=== PATIENT | female | born 1945 | race Caucasian/White ===

== ENCOUNTER 2020-05-04 19:15 | Emergency (ER) | payer MEDICARE, OTHER ==
[2020-05-04] MEDS ORDERED: LORazepam 2 MG/ML SDV IVPUSH STA (19:50)
[2020-05-04] MEDS ORDERED: Ondansetron 4 MG/2 ML SDV IVPUSH ONE ×2 (19:50→20:06)
[2020-05-04] MEDS ORDERED: Sodium Chloride 0.9% 1,000 ML IV ONE ×2 (19:50→20:06)
[2020-05-04] MEDS ORDERED: Sodium Chloride 0.9% 1,000 ML ONE (19:58)
[2020-05-04] MEDS ORDERED: LORazepam 2 MG/ML SDV ONE (19:58)
[2020-05-04] MEDS ORDERED: Ondansetron 4 MG/2 ML SDV ONE (19:58)
[2020-05-04] MEDS ORDERED: LORazepam 2 MG/ML SDV IVPUSH ONE (20:06)
--- NOTE | 2020-05-04 21:50 | EDM.PDOC ---
ED HPI GENERAL MEDICAL PROBLEM - General Chief Complaint: Gastrointestinal Problem Stated Complaint: [facility] Time Seen by Provider: 05/04/20 19:16 Source of Information: Reports: Patient History Limitations: Reports: No Limitations - History of Present Illness INITIAL COMMENTS - FREE TEXT/NARRATIVE: Ms. Medellin is a very pleasant 74-year-old woman who now presents the ED by EMS for not feeling well. She states that she was diagnosed with spinal stenosis by MRI several months ago - she does not recall exactly when it was - it may have been more than a year ago. She was evaluated by a Spinal Surgeon at [facility], who recommended that she undergo decompression surgery. The patient states that she elected to not have surgery, however, because she has heard of a couple of stories, one where a patient who had spinal surgery had a screw back out on its own, and another story where a patient who had spinal surgery had a screw that was too long. She was concerned that if she underwent surgery, she may suffer from chronic pain. She states that she had an appointment with her PCP this morning, however, who encouraged her to reconsider surgery, in order to prevent eventual bowel and bladder incontinence. As it is right now, the patient states that she has bilateral lower extremity weakness, although she denies a history of falls. She states that around 19:00 tonight, she developed a right temporal headache, for which she took Tylenol, which did not help. She states that she started to feel hot, shaky, nauseated, and dizzy. She drank some cold water, which also did not help, therefore she called EMS. She denies prior similar symptoms. Here in the ED, the patient's initial BP is found to be elevated at 157/130, otherwise, she is hemodynamically stable, afebrile, saturating 100% on room air. She appears to be quite anxious. The patient states that she suffers from frequent constipation, otherwise, she denies having a recent fever, chills, sore throat, ear pain, nasal or sinus congestion, cough, dyspnea, chest pain, palpitations, nausea, vomiting, diarrhea, abdominal pain, urinary symptoms, recent weight gain or weight loss, recent bloody bowel movements or black bowel movements, recent joint aches, headaches, or rashes. The patient's PCP is Dr. Triny Tidwell. She does not recall the name of her Spinal Surgeon at [facility]. Her Silk Spooler is Dr. Jason Anthony. She already received an influenza vaccine this season. - Related Data Allergies Allergy/AdvReac Type Severity Reaction Status Date / Time Beta-Blockers Allergy Cannot Verified 05/04/20 19:41 (Beta-Adrenergic Bloc Remember oxycodone Allergy Cannot Verified 05/04/20 19:41 Remember Home Meds: Home Meds Citalopram [Citalopram HBr] 1 tab PO DAILY 05/04/20 [History] Diclofenac Sodium [Diclo Gel] 1 gram TOP QID 05/04/20 [History] Irbesartan 1 tab PO DAILY 05/04/20 [History] Letrozole 1 tab PO DAILY 05/04/20 [History] Simvastatin 1 tab PO DAILY 05/04/20 [History] hydroCHLOROthiazide [Hydrochlorothiazide] 1 tab PO DAILY 05/04/20 [History] predniSONE [Prednisone] 1 tab PO DAILY 05/04/20 [History] Past Medical History Cardiovascular History: Reports: High Cholesterol, Hypertension, Other (See Below) (Carotid artery disease) Gastrointestinal History: Reports: Colon Polyp Genitourinary History: Reports: Urinary Incontinence (stress incontinence) Musculoskeletal History: Reports: Osteoarthritis, Other (See Below) (Spinal stenosis) Psychiatric History: Reports: Anxiety, Depression Endocrine/Metabolic History: Reports: Other (See Below) (Prediabetes) Oncologic (Cancer) History: Reports: Breast (right, sp lumpectomy and either CTx or RTx) - Past Surgical History HEENT Surgical History: Reports: Cataract Surgery (bilateral x 2), Tonsillectomy GI Surgical History: Reports: Colonoscopy (x 3) Female Surgical History: Reports: Tubal Ligation Neurological Surgical History: Reports: C-Spine (posterior laminectomy) Musculoskeletal Surgical History: Reports: Knee Replacement (right), Shoulder Surgery (left, arthroscopic) Oncologic Surgical History: Reports: Lumpectomy (right) Social & Family History - Tobacco Use Tobacco Use Status *Q: Former Tobacco User Years of Tobacco use: 27 Packs/Tins Daily: 1 Month/Year Tobacco Last Used: Quit 1990 Second Hand Smoke Exposure: No - Caffeine Use Caffeine Use: Reports: Coffee - Alcohol Use Alcohol Use History: No - Recreational Drug Use Recreational Drug Use: No - Living Situation & Occupation Living situation: Reports: , Alone Occupation: Retired ED ROS GENERAL - Review of Systems Review Of Systems: Comprehensive ROS is negative, except as noted in HPI. ED EXAM, GENERAL - Physical Exam Exam: See Below Exam Limited By: No Limitations General Appearance: Alert, WD/WN, No Apparent Distress, Anxious Eye Exam: Bilateral Eye: EOMI, Normal Inspection Ears: Normal External Exam, Hearing Grossly Normal Nose: Normal Inspection Throat/Mouth: Normal Inspection, Normal Lips, Normal Voice, No Airway Compromise Head: Atraumatic, Normocephalic Neck: Normal Inspection, Full Range of Motion Respiratory/Chest: No Respiratory Distress, Lungs Clear, Normal Breath Sounds, No Accessory Muscle Use Cardiovascular: Normal Peripheral Pulses, Regular Rate, Rhythm, No Gallop, No JVD, No Murmur, No Rub Peripheral Pulses: 3+: Radial (L), Radial (R) GI/Abdominal: Normal Bowel Sounds, Soft, Non-Tender, No Organomegaly, No Distention, No Abnormal Bruit, No Mass Back Exam: Normal Inspection, Full Range of Motion, NT Extremities: Normal Inspection, Normal Range of Motion, No Pedal Edema, Normal Capillary Refill Neurological: Alert, Oriented, Normal Cognition, No Motor/Sensory Deficits Psychiatric: Anxious Skin Exam: Warm, Dry, Intact, Normal Color, No Rash #1 Interpretation EKG Date: 05/04/20 Time: 20:03 Rhythm: NSR Rate (Beats/Min): 85 [place]: Normal P-Wave: Enlarged (LAE) QRS: Normal ST-T: Normal QT: Normal Comparison: NA - No Prior EKG Course - Vital Signs Last Recorded V/S: Last Vital Signs Temp 36.5 C 05/04/20 19:21 Pulse 92 05/04/20 19:21 Resp 19 05/04/20 19:21 BP 157/130 H 05/04/20 19:21 Pulse Ox 100 05/04/20 19:21 - Orders/Labs/Meds Orders: Active Orders 24 hr Category Date Time Status EKG Documentation Completion [RC] STAT Care 05/04/20 19:48 Active Head wo Cont [CT] Stat Exams 05/04/20 22:51 Taken CORONAVIRUS COVID-19 PCR PHL Stat Lab 05/04/20 19:50 Ordered CORONAVIRUS COVID-19 PCR PHL Stat Lab 05/04/20 20:45 Received Magnesium Sulfate/Water [Magnesium Sulfate in Water Med 05/04/20 22:32 Active Premix] 4 gm Premix Bag 1 bag IV ONETIME Medication Orders Magnesium Sulfate 4 gm/ Premix 50 mls @ 12.5 mls/hr IV ONETIME ONE Stop: 05/05/20 02:31 Last Admin: 05/04/20 22:51 Dose: 12.5 mls/hr Documented by: TEJAL Labs: Laboratory Tests 05/04/20 05/04/20 05/04/20 Range/Units 19:59 19:59 22:51 WBC 8.40 (3.98-10.04) K/mm3 RBC 3.92 L (3.98-5.22) M/mm3 Hgb 11.1 L (11.2-15.7) gm/dl Hct 34.1 (34.1-44.9) % MCV 87.0 (79.4-94.8) fl MCH 28.3 (25.6-32.2) pg MCHC 32.6 (32.2-35.5) g/dl RDW Std Deviation 43.3 (36.4-46.3) fL Plt Count 419 H (182-369) K/mm3 MPV 9.2 L (9.4-12.3) fl Neutrophils % (Manual) 86 H (40-60) % Band Neutrophils % 0 (0-10) % Lymphocytes % (Manual) 8 L (20-40) % Atypical Lymphs % 0 % Monocytes % (Manual) 5 (2-10) % Eosinophils % (Manual) 0 L (0.7-5.8) % Basophils % (Manual) 1 (0.1-1.2) Platelet Estimate Adequate RBC Morph Comment Normal Sodium 132 L (136-145) mEq/L Potassium 3.6 (3.5-5.1) mEq/L Chloride 95 L (98-107) mEq/L Carbon Dioxide 23 (21-32) mEq/L Anion Gap 17.6 H (5-15) BUN 19 H (7-18) mg/dL Creatinine 0.7 (0.55-1.02) mg/dL Est Cr Clr Drug Dosing TNP Estimated GFR (MDRD) > 60 (>60) mL/min BUN/Creatinine Ratio 27.1 H (14-18) Glucose 135 H (83-115) mg/dL Calcium 9.9 (8.5-10.1) mg/dL Magnesium 1.6 L (1.8-2.4) mg/dl Total Bilirubin 0.9 (0.2-1.0) mg/dL AST 34 (15-37) U/L ALT 34 (14-59) U/L Alkaline Phosphatase 93 (46-116) U/L Troponin I < 0.017 (0.00-0.056) ng/mL Total Protein 7.5 (6.4-8.2) g/dl Albumin 3.5 (3.4-5.0) g/dl Globulin 4.0 gm/dL Albumin/Globulin Ratio 0.9 L (1-2) TSH 3rd Generation 1.298 (0.358-3.74) uIU/mL SARS-CoV-2 RNA (MARITZA) Negative (NEGATIVE) Meds: Medications Generic Name Dose Route Start Last Admin Trade Name Freq PRN Reason Stop Dose Admin Magnesium Sulfate 4 gm/ Premix 50 mls @ 12.5 mls/hr 05/04/20 22:32 05/04/20 22:51 IV 05/05/20 02:31 12.5 mls/hr ONETIME ONE Administration Discontinued Medications Generic Name Dose Route Start Last Admin Trade Name Freq PRN Reason Stop Dose Admin Sodium Chloride Confirm 05/04/20 19:58 05/04/20 21:59 Normal Saline Administered 05/04/20 19:59 Not Given Dose 1,000 mls @ as directed .ROUTE .STK-MED ONE Sodium Chloride 1,000 mls @ 999 mls/hr 05/04/20 19:50 05/04/20 20:00 Normal Saline IV 05/04/20 20:50 999 mls/hr ONETIME ONE Administration Sodium Chloride 1,000 mls @ 999 mls/hr 05/04/20 20:06 05/04/20 21:59 Normal Saline IV 05/04/20 21:06 Not Given ONETIME ONE Lorazepam Confirm 05/04/20 19:58 05/04/20 22:00 Ativan Administered 05/04/20 19:59 Not Given Dose 2 mg .ROUTE .STK-MED ONE Lorazepam 1 mg 05/04/20 19:50 05/04/20 20:00 Ativan IVPUSH 05/04/20 19:51 1 mg ONETIME STA Administration Lorazepam 1 mg 05/04/20 20:06 05/04/20 22:00 Ativan IVPUSH 05/04/20 20:07 Not Given ONETIME ONE Ondansetron HCl Confirm 05/04/20 19:58 05/04/20 21:59 Zofran Administered 05/04/20 19:59 Not Given Dose 4 mg .ROUTE .STK-MED ONE Ondansetron HCl 4 mg 05/04/20 19:50 05/04/20 20:00 Zofran IVPUSH 05/04/20 19:51 4 mg ONETIME ONE Administration Ondansetron HCl 4 mg 05/04/20 20:06 05/04/20 21:59 Zofran IVPUSH 05/04/20 20:07 Not Given ONETIME ONE - Re-Assessments/Exams Free Text/Narrative Re-Assessment/Exam: 05/04/20 19:51 As above, the patient has a history of spinal stenosis, and surgery was recommended quite some time ago, but she has been putting it off. She was encouraged to schedule surgery by her PCP, who she saw this morning. Likely due to anxiety about surgery - she mentioned two anecdotes of patient's with complications from surgery (probably not even the same kind of surgery that is being recommended by the patient's surgeon) - the patient developed a headache tonight, then felt hot, shaky, nauseated, and dizzy. Here in the ED, she is mildly hypertensive and quite anxious - she began crying towards the end of my interview. I have ordered a work-up that includes some blood tests, an ECG, and a send-out swab for the SARS-CoV-2 virus, since that is one of her concerns, as well, having recently met with some family members from [place]. In the meantime, the patient will be given some IV fluid, IV Ativan, and IV Zofran. 05/04/20 22:33 There was a significant delay in receiving the lab results, due to a computer problem. The patient's CBC is remarkable for mild anemia, with a H/H of 11.1/34.1, and thrombocytosis of 419,000. Her CMP is remarkable for mild hyponatremia of 132, and anion gap slightly elevated at 17.6, but with a bicarbonate normal at 23, and mild hyperglycemia of 135, with the remainder of her CMP being unremarkable. She has hypomagnesemia of 1.6. Her TSH is within normal limits at 1.298. Her troponin is undetectably low. Based on the above, I have ordered a 4 g Mg-rider. 05/04/20 22:36 Test results discussed with the patient. The Ativan appears to have made her somewhat loopy - she has somewhat disrobed herself. I agree with Anayeli BIRMINGHAM that she is in no condition to discharge home. The patient agreed to be placed into observation. 05/04/20 22:[address] Case at 22:36. He agreed to place the patient into observation, but was under the impression that while we may have some empty beds, we do not have staff to cover them. It was our understanding that there were beds with staff available, however, when Dawna BIRMINGHAM called before, there was no answer. If beds with staff are available, I will write bridge orders, otherwise, we will need to keep the patient here in the ED overnight; we are aware that there are no beds available in [place]. I have added an order for a stat swab for the SARS-CoV-2 virus. 05/04/20 22:52 I went and reevaluated the patient. She is mostly oriented -she believes that it is 2027, but correctly identified that it is May 04, and that she is in the hospital - but was unable to follow even simple commands, seemingly intoxicated. At one point, she fell asleep on me. She was unable to cooperate with an attempt at neurologic examination, including the inability to properly finger-nose, hand-flip, or heel/valencia. While it is most likely that it is the Ativan that is causing her symptoms, I have ordered a CT of the head without contrast to make sure that there is nothing else going on. 05/04/20 23:30 CT of the head without contrast is read by [facility] as: No acute intracranial hemorrhage or edema identified. An acute infarct may not be visible on CT for up to 24-48 hours. If there is high clinical suspicion for acute infarct, a follow-up head CT or brain MRI should be considered. 05/04/20 23:48 While the patient's altered mental status is most likely due to the Ativan given earlier, I cannot rule out a brainstem infarct, even with her negative CT scan. I wanted to therefore discuss her case with a Neurologist. We are aware that there are no beds available in [place]. Case discussed with Troy at [facility] at 23:31. CT/head images pushed to [facility] at 23:34. Case then discussed with Dr. Vazquez, Neurologist at [facility], at 23:38. He agreed that the patient's altered mental status is most likely due to the Ativan, however, he cannot rule out a concurrent brainstem infarct. He agreed to have the patient transferred to their facility to undergo an MRI. The patient will be flown. 05/05/20 00:01 The patient's swab for the SARS-CoV-2 virus has returned negative. Departure - Departure Time of Disposition: 23:51 Disposition: DC/Tfer to Acute Hospital 02 Condition: Fair Clinical Impression: Altered mental status, Hypomagnesemia - Discharge Information *PRESCRIPTION DRUG MONITORING PROGRAM REVIEWED*: Not Applicable *COPY OF PRESCRIPTION DRUG MONITORING REPORT IN PATIENT JESSE: Not Applicable Referrals: Triny Tidwell MD [Physician] - Jason Anthony MD [Ordering Only Provider] - Forms: ED Department Discharge Sepsis Event Note (ED) - Evaluation Sepsis Screening Result: No Definite Risk - Focused Exam Vital Signs: Vital Signs Temp Pulse Resp BP Pulse Ox 05/04/20 19:21 36.5 C 92 19 157/130 H 100 - My Orders Last 24 Hours: My Active Orders 05/04/20 19:48 EKG Documentation Completion [RC] STAT 05/04/20 19:50 CORONAVIRUS COVID-19 PCR PHL Stat 05/04/20 20:45 CORONAVIRUS COVID-19 PCR PHL Stat 05/04/20 22:32 Magnesium Sulfate/Water [Magnesium Sulfate in Water Premix] 4 gm Premix Bag 1 bag IV ONETIME 05/04/20 22:51 Head wo Cont [CT] Stat - Assessment/Plan Last 24 Hours: My Active Orders 05/04/20 19:48 EKG Documentation Completion [RC] STAT 05/04/20 19:50 CORONAVIRUS COVID-19 PCR PHL Stat 05/04/20 20:45 CORONAVIRUS COVID-19 PCR PHL Stat 05/04/20 22:32 Magnesium Sulfate/Water [Magnesium Sulfate in Water Premix] 4 gm Premix Bag 1 bag IV ONETIME 05/04/20 22:51 Head wo Cont [CT] Stat
[2020-05-04] MEDS ORDERED: Magnesium Sulfate/Water 4 GM in Premix Bag 1 BAG IV ONE (22:32)
--- NOTE | 2020-05-05 08:34 | CT ---
Head CT Technique: Multiple axial sections through the brain were obtained. Intravenous contrast was not utilized. Comparison: No prior head CT is available. Findings: Intracranial: Ventricles along with basal cisterns and sulci over the convexities appear within normal limits. Scattered areas of motion artifact are present. Mild areas of diminished density are noted within the periventricular white matter which most likely represent small vessel ischemic demyelination change. No other abnormal parenchymal densities are seen. No evidence of intracranial hemorrhage. No midline shift or mass-effect is seen. Osseous: Bone window settings were reviewed which show mild atherosclerotic calcification within the vertebral vessels and within the carotid siphon. Visualized mastoid sinuses and paranasal sinuses show nothing acute. No acute calvarial abnormality is appreciated. Impression: 1. Mild motion artifact. 2. Mild senescent change as noted above. 3. Nothing acute is definitely appreciated on noncontrast head CT study. Note: If stroke is still considered, consider head MRI. Diagnostic code #2 I agree with preliminary report from [facility], finalized on 05/05/20, 12:23 AM [employer]
== END 2020-05-05 00:20 ==
LOC: JD.ED 19:15
DX: R41.82 Altered mental status, unspecified (principal); E83.42 Hypomagnesemia; E78.00 Pure hypercholesterolemia, unspecified; I10 Essential (primary) hypertension; F41.9 Anxiety disorder, unspecified; F32.9 Major depressive disorder, single episode, unspecified; Z20.828 Contact with and (suspected) exposure to other viral communicable diseases; Z87.891 Personal history of nicotine dependence; Z88.8 Allergy status to other drugs, medicaments and biological substances; Z88.5 Allergy status to narcotic agent
CPT/HCPCS: 36415; 70450; 70450-26; 80053; 83735; 84443; 84484; 85007; 85027; 93005; 93010; 96361; 96365; 96366; 96375; 99285; 99285-25; J2060; J2405; J3475; J7030; U0002